=== PATIENT | female | born 1945 | race Caucasian/White ===

== ENCOUNTER 2016-06-27 17:25 | Emergency (ER) | payer MEDICARE, OTHER ==
[~2016-06-27 17:25] MED LIST: CLOTRIMAZOLE-BE15 G1 TOP; ENALAPRIL; ENALAPRIL MALE2.5 M1 PO; ENALAPRIL MALE2.5 MG; FELODIPINE ER10 M2 PO; HYDROCHLOROTH12.5 M1; HYDROCHLOROTHIA25 M1 PO; HYDROCHLOROTHIAZIDE; IBUPROFEN800 M1 PO; MELATONIN3 M4 PO; PERCOCET 5-3251 EACH PO; PLENDIL; PLENDIL10 MG; PREMPRO; PREMPRO 0.3 MG/1 TAB; SENOKOT-S TABL1 EACH PO; ZOLOFT50 M1 PO; ZOLOFT50 MG; [UNRECOGNIZED DRUG - CODE] PO
[2016-06-27 18:53] LABS: BASO % 0.3 % (0-2); EOS % 0.3 % (0-7); IMMATURE GRANULOCYTES ABSOLUTE 0.02 tho/cmm (0-0.03); IMMATURE GRANULOCYTES PERCENT 0.2 % (0-0.3); LYMPH % 7.1 % (20-45); LYMPH ABSOLUTE COUNT 0.6 tho/cmm (0.8-4.5); MCHC MEAN CORPUSCULAR HGB CONC 32.6 % (32.0-36.0); MCV (MEAN CELL VOLUME) 92.1 fl (82.0-96.0); MEAN PLATELET VOLUME 9.2 cmc (9.4-12.4); MONO % 4.9 % (0-12); MONOCYTE ABSOLUTE COUNT 0.4 tho/cmm (0.0-1.2); NEUTROPHIL ABSOLUTE COUNT 7.8 tho/cmm (1.6-8.0); NEUTROPHIL-AUTOMATED 7.8 tho/cmm (1.6-8.0); NEUTROPHILS % 87.2 % (40-80); PLATELET COUNT 304 tho/cmm (150-450); RED BLOOD COUNT 4.67 mil/cmm (4.00-5.20); RED CELL DISTRIBUTION WIDTH 13.7 % (12.4-16.4)
[2016-06-27 19:02] LABS: ANION GAP 11 mmol/L (0-20); BLOOD UREA NITROGEN 16 mg/dl (6-24); CALCIUM 9.5 mg/dl (8.5-10.5); CARBON DIOXIDE-VENOUS 27 mmol/L (22-32); CHLORIDE 108 mmol/l (96-110); CREATININE 0.63 mg/dl (0.50-1.10); GLUCOSE 142 mg/dL (70-110); SODIUM 142 mmol/L (135-145); eGFR VALUE FOR BLACK >90 mL/Min
[2016-06-27] MEDS ORDERED: MECLIZINE HCL25 M3 PO (19:46)
[2016-06-27] MEDS ORDERED: ZOFRAN ODT4 MG PO (19:46)
== END 2016-06-27 20:00 ==
LOC: EDMED 17:25
PROVIDERS: Emergency Medicine
DX: R42 Dizziness and giddiness (principal); R11.2 Nausea with vomiting, unspecified; E11.9 Type 2 diabetes mellitus without complications; I10 Essential (primary) hypertension; Z79.899 Other long term (current) drug therapy; Z90.710 Acquired absence of both cervix and uterus
CPT/HCPCS: J2405; J7030